=== PATIENT | male | born 1995 | race Caucasian/White ===

== ENCOUNTER 2023-01-04 13:29 | Emergency (ER) | payer SELFPAY ==
[~2023-01-04] VITALS: Ht 185.4 cm; Wt 65.0 kg
[~2023-01-04 13:29] MED LIST: AMOXICILLIN500 MG OR; LORTAB 1010 MG PO; ULTRAM50 M1 PO
[2023-01-04] MEDS ORDERED: NAPROXEN500 MG PO ×2 (15:42→15:54)
[2023-01-04] MEDS ORDERED: METHOCARBAMOL500 MG PO ×2 (15:42→15:54)
[2023-01-04 16:02] VITALS: BP 135/85
== END 2023-01-04 16:06 | disposition home or self-care (01) | DRG 563 ==
LOC: ED 13:29
DX: S29.012A Strain of muscle and tendon of back wall of thorax, initial encounter (principal); W18.30XA Fall on same level, unspecified, initial encounter